=== PATIENT | male | born 1970 | race Caucasian/White ===

== ENCOUNTER → 2018-09-17 | Outpatient (REF) | payer OTHER ==
[2018-09-17 12:20] LABS: ALBUMIN 3.9 GM/DL (3.2-5.2); ALBUMIN/GLOBULIN RATIO 1.34 (1.00-1.93); ALKALINE PHOSPHATASE 48 U/L (45-117); ALT/SGPT 26 U/L (12-78); ANION GAP 5 MEQ/L (8-16); AST/SGOT 13 U/L (7-37); BILIRUBIN,TOTAL 0.6 MG/DL (0.2-1.0); BLOOD UREA NITROGEN 16 MG/DL (7-18); CALCIUM LEVEL 8.7 MG/DL (8.5-10.1); CARBON DIOXIDE LEVEL 29 MEQ/L (21-32); CHLORIDE LEVEL 106 MEQ/L (98-107); CHOLESTEROL LEVEL 198 MG/DL (<200); CHOLESTEROL RISK RATIO 2.955 (<5); CREATININE FOR GFR 0.86 MG/DL (0.70-1.30); GLOMERULAR FILTRATION RATE > 60.0 (>60); GLUCOSE, FASTING 84 MG/DL (70-100); HDL CHOLESTEROL 67 MG/DL (>40); LDL CHOLESTEROL 116 MG/DL (<100); NON-HDL-C 131 MG/DL; POTASSIUM SERUM 4.4 MEQ/L (3.5-5.1); SODIUM LEVEL 140 MEQ/L (136-145); TOTAL PROTEIN 6.8 GM/DL (6.4-8.2); TRIGLYCERIDES LEVEL 74 MG/DL (<150)
== END ==
LOC: M SFHCCLAY 07:21
DX: Z13.220 Encounter for screening for lipoid disorders (principal)

== ENCOUNTER → 2019-01-27 | Outpatient (REF) | payer OTHER | LOC: M LAB REF 16:39 | PROVIDERS: ATTEND Ophthalmology | DX: L72.9 Follicular cyst of the skin and subcutaneous tissue, unspecified (principal) ==

== ENCOUNTER → 2021-08-07 | Outpatient (CLI) | payer OTHER | LOC: M LABSMTC 10:20 | PROVIDERS: ATTEND Anesthesiology | DX: Z01.812 Encounter for preprocedural laboratory examination (principal); Z20.822 Contact with and (suspected) exposure to COVID-19 ==

== ENCOUNTER 2021-08-10 09:03 | Day surgery (SDC) | payer OTHER ==
[~2021-08-10] VITALS: Ht 188 cm; Wt 85.5 kg
[~2021-08-10 09:03] MED LIST: NS 1,000 ML IV ONE
--- OUTSIDE RECORDS SUMMARY | 2021-08-10 09:09 | CCD ---
Author Author [facility] Organization [facility] Address Unknown Phone Unavailable Care Team Providers Care Model And Mold Maker Name Role Phone BERNARDO, A KENNA DO Unavailable Unavailable BERNARDO, A KENNA DO Unavailable Unavailable BERNARDO, A KENNA DO Unavailable Unavailable BERNARDO, A KENNA DO Unavailable Unavailable BERNARDO, A KENNA DO Unavailable Unavailable BERNARDO, A KENNA DO Unavailable Unavailable BERNARDO, A KENNA DO Unavailable Unavailable BERNARDO, A KENNA DO Unavailable Unavailable BERNARDO, A KENNA DO Unavailable Unavailable BERNARDO, A KENNA DO Unavailable Unavailable BERNARDO, A KENNA DO Unavailable Unavailable BERNARDO, A KENNA DO Unavailable Unavailable BERNARDO, A KENNA DO Unavailable Unavailable BERNARDO, A KENNA DO Unavailable Unavailable BERNARDO, A KENNA DO Unavailable Unavailable BERNARDO, A KENNA DO Unavailable Unavailable BERNARDO, A KENNA DO Unavailable Unavailable BERNARDO, A KENNA DO Unavailable Unavailable BERNARDO, A KENNA DO Unavailable Unavailable BERNARDO, A KENNA DO Unavailable Unavailable BERNARDO, A KENNA DO Unavailable Unavailable BERNARDO, A KENNA DO Unavailable Unavailable Re-disclosure Warning The records that you are about to access may contain information from federally-assisted alcohol or drug abuse programs. If such information is present, then the following federally mandated warning applies: This information has been disclosed to you from records protected by federal confidentiality rules (42 CFR part 2). The federal rules prohibit you from making any further disclosure of this information unless further disclosure is expressly permitted by the written consent of the person to whom it pertains or as otherwise permitted by 42 CFR part 2. A general authorization for the release of medical or other information is NOT sufficient for this purpose. The Federal rules restrict any use of the information to criminally investigate or prosecute any alcohol or drug abuse patient.The records that you are about to access may contain highly sensitive health information, the redisclosure of which is protected by Article 27-F of the [facility] Public Health law. If you continue you may have access to information: Regarding HIV / AIDS; Provided by facilities licensed or operated by the [facility] Office of Mental Health; or Provided by the [facility] Office for People With Developmental Disabilities. If such information is present, then the following [facility] mandated warning applies: This information has been disclosed to you from confidential records which are protected by state law. State law prohibits you from making any further disclosure of this information without the specific written consent of the person to whom it pertains, or as otherwise permitted by law. Any unauthorized further disclosure in violation of state law may result in a fine or intermediate sentence or both. A general authorization for the release of medical or other information is NOT sufficient authorization for further disc losure. Encounters Encounter Providers Location Date Indications Data Source(s ) <td ID="encounterTypeDescriptionID1">OCT DISC</td><td></td><td>Trevon Todd MD [facility]</td><td>05/25/2021</td><td>7:26AM</td><td>7:55AM</td><td></td>Outpatient Trevon Todd MD [facility] 05/25/2021 07:2 6:00 AM EDT - 05/25/2021 07:55:00 AM [place] (Trevon Bobo MD [facility]) <td ID="encounterTypeDescriptionID0">KATRINA TING - VISUAL FIELD & OCT</td><td>Kenna Dejesus DO</td><td>Trevon Todd MD [facility]</td><td>05/25/2021</td><td>7:26AM</td><td>8:32AM</td><td><content ID="encounterDiagnosisID0-0">Borderline Glaucoma Open Angle with Borderline Findings Both Eyes</content></td>Outpatient Attender: KENNA Garcia MD [facility] 05/25/2021 07:26:00 AM EDT - 05/25/2021 08:32:00 AM ED T Borderline Glaucoma Open Angle with Borderline Findings Both Eyes VIKY (Trevon Bobo MD [facility]) Borderline Glaucoma Open Angle with Bord barb Findings Both Eyes <td ID="encounterTypeDescriptionID2">2 Y ear Follow-Up</td><td>Kenna Dejesus DO</td><td>Trevon Todd MD [facility]</td><td>05/11/2021</td><td>1:26PM</td><td>2:02PM</td><td><content ID="encounterDiagnosisID2-0">Borderline Glaucoma Open Angle with Borderline Findings Both Eyes</content>, <content ID="encounterDiagnosisID2-1">Dry Eye Syndrome Both Eyes</content>, <content ID="encounterDiagnosisID2-2">Vitreous Disorders Degeneration</content></td>Outpatient Attender: KENNA Garcia MD [facility] 05/11/2021 01:26:00 PM EDT - 05/11/2021 02:02:00 PM EDT Vitreous Disorders DegenerationDry Eye S yndrome Both EyesBorderline Glaucoma Open Angle with Borderline Findings Both EyesVitreous Disorders DegenerationDry Eye Syndrome Both EyesBorderline Glaucoma Open Angle with Borderline Findings Both Eyes VIKY (Trevon Bobo MD [facility]) Vitreous Disorders Degeneration Dry Eye Syndrome Both Eyes Borderline Glaucoma Open Angle with Bord barb Findings Both Eyes Vitreous Disorders Degeneration Dry Eye Syndrome Both Eyes Borderline Glaucoma Open Angle with Bord barb Findings Both Eyes Outpatient [address] [facility] [address] 04/25/2021 12:00:00 AM EDT eCW1 ([facility]) Unknown [address] [facility] [address] 04/10/2021 12:00:00 AM EDT eCW1 ([facility]) Unknown [address] [facility] [address] 08/08/2020 12:00:00 AM EDT eCW1 ([facility]) Immunizations Vaccine Date Status Description Data Source(s) COVID-19 VACCINE Moderna 02/02/2021 12:00:00 AM EDT completed NYSIIS Vaccine Series Complete: YESThis Data wa s Submitted to [facility] Via [employer]. COVID-19 VACCINE Moderna 01/05/2021 12:00:00 AM EDT completed NYSIIS Vaccine Series Complete: NOThis Data was Submitted to [facility] Via [employer]. Medications Medication Brand Name Start Date Product Form Dose Route Admi nistrative Instructions Pharmacy Instructions Status Indications Reaction Description Data Source(s) SUPREP BOWEL PREP KIT 17.5-3.13-1.6 gram SODIUM, POTASSIUM,M AG SULFATES 08/02/2021 12:00:00 AM EDT recon soln 354 TAKE PER DOCTOR'S BOWEL PREP INSTRUCTIONS TAKE PER DOCTOR'S BOWEL PREP INSTRUCTIONS SOLD: 08/08/2021 [facility] 0.01 % 05/12/2021 12:00:00 AM EDT drops 2 INSTILL 1 DROP IN EACH EYE AT NIGHT TIME INSTILL 1 DROP IN EACH EYE AT NIGHT TIME SOLD: 05/20/2021 [facility] bimatoprost 0.1 MG/ML Ophthalmic Solutio n [Lumigan] Lumigan 0.01% Ophthalmic Solution Lumigan 0.01% Ophthalmic Solution 05/11/2021 12:00:00 AM EDT 1 active bimatoprost 0.1 MG/ML Ophthalmic Solution [Lumigan] VIKY (Trevon Bobo MD [facility]) 0.3 % 08/08/2020 12:00:00 AM EDT drops 5 INSTILL 1 DROP IN THE RIGHT EYE FOUR TIMES A DAY DIRECTED INSTILL 1 DROP IN THE RIGHT EYE FOUR JAVAN ES A DAY DIRECTED SOLD: 08/08/2020 [facility] bimatoprost 0.1 MG/ML Ophthalmic Solutio n [Lumigan] Lumigan 0.01% Ophthalmic Solution Lumigan 0.01% Ophthalmic Solution 05/08/2019 12:00:00 AM EDT 1 aborted bimatoprost 0.1 MG/ML Ophthalmic Solution [Lumigan] VIKY (Trevon Bobo MD [facility]) Erythromycin 0.005 MG/MG Ophthalmic Oint ment Erythromycin 5MG/GM Ophthalmic Ointment Erythromycin 5MG/GM Ophthalmic Ointment 10/29/2018 12:00:00 AM EST aborted erythromycin 0.005 M G/MG Ophthalmic Ointment VIYK (Trevon Bobo MD [facility]) Insurance Providers Payer name Policy type / Coverage type Policy ID Covered constitution party ID Covered constitution party's relationship to mcmahon Policy Mcmahon Plan Information [facility] [id number] SP [id number] ANSI-Not a Secondary Insurance [id number] [facility] [employer] [place] [id number] S [id number] [facility]AL SERVICES [facility] [id number] S [id number] Problems, Conditions, and Diagnoses No Information Surgeries/Procedures Procedure Description Date Indications Data Source(s) No surgical / procedural history No surgical / procedural hi story 05/11/2021 12:00:00 AM EDT VIKY (Trevon Bobo MD [facility]) Results No Information Social History Code Duration Value Status Description Data Source(s ) Smoking 05/11/2021 02:06:18 PM EDT Never smoked tobacco (findi ng) completed Never smoked tobacco (finding) VIKY (Trevon Bobo MD [facility]) Smoking 04/25/2021 12:00:00 AM EDT Current Smoker completed Curre nt Smoker eCW1 ([facility]) Vital Signs ID Date Data Source UNK Name Value Range Interpretation Code Description Data Source(s) [place] body weight 190 [lb_av] 190 [lb_av] MEDEN T ([facility], ) Body weight 87.998 kg 87.998 kg MEDENT ([facility], ) Body surface area Derived from formula 2.15 m2 2.15 m2 [facility] ([facility], ) Systolic blood pressure 110 mm[Hg] 110 mm[Hg] M EDENT ([facility]) Diastolic blood pressure 68 mm[Hg] 68 mm[Hg] MEDENT ([facility]) Heart rate 62 /min 62 /min MEDENT ([facility]) Body temperature 97.8 [degF] 97.8 [degF] MEDENT ([facility]) Body height 74 [in_i] 74 [in_i] MEDENT ([facility]) 6'2" Body weight 194.00 [lb_av] 194.00 [lb_av] MEDEN T ([facility]) Body mass index (BMI) [Ratio] 24.9 kg/m2 24.9 k g/m2 MEDENT ([facility]) Body weight 191 [lb_av] 191 [lb_av] eCW1 ([facility]) Body height [in_i] eCW1 ([facility]) Body mass index (BMI) [Ratio] 24.86 kg/m2 24.86 kg/m2 eCW1 ([facility]) Heart rate 75 /min 75 /min eCW1 ([facility]) Respiratory rate 18 /min 18 /min eCW1 ([facility]) Body temperature 98.2 [degF] 98.2 [degF] eCW1 ( [facility]) Systolic blood pressure 107 mm[Hg] 107 mm[Hg] e CW1 ([facility]) Diastolic blood pressure 69 mm[Hg] 69 mm[Hg] eCW1 ([facility]) Patient Treatment Plan of Care Planned Activity Planned Date Details Description Data Source (s) bimatoprost 0.1 MG/ML Ophthalmic Solution [Lumigan] 05/11/20 21 12:00:00 AM EDT VIKY (Trevon Bobo MD [facility]) bimatoprost 0.1 MG/ML Ophthalmic Solution [Lumigan] 05/08/20 19 12:00:00 AM EDT VIKY (Trevon Bobo MD [facility]) Erythromycin 0.005 MG/MG Ophthalmic Ointment 10/29/2018 12:00:00 AM EST VIKY (Trevon Bobo MD [facility])
--- OUTSIDE RECORDS SUMMARY | 2021-08-10 09:09 | CCD ---
Author Author Trevon Todd MD [facility] Organization Trevon Todd MD [facility] Address [address] [address] Phone Care Team Providers Care Kitchen Helper Name Role Phone Perez SCHULTZ, Trevon DOUGLAS Unavailable [phone] Reason for Referral No Reason for Referral Recorded Problems Includes: Active, inactive, and resolved Problems All Visits Onset Date - Time Resolved Date - Time Provider Co ndition Status Borderline Glaucoma Open Angle with Borderline Finding s Both Eyes 10/29/2018 - 12:00AM Trevon Todd MD, FACS Active Epidermal Inclusion Cyst 10/29/2018 - 12:00AM Trevon Todd MD, FACS Active Blepharitis Squamous 10/29/2018 - 12:00AM Trevon Sultana MD, FACS Active Note: , right lower eyelid, left upper eyelid, left lower eyelid Squamous blepharitis right lower eyelid 10/29/2018 - 12:00AM Trevon Bobo MD, FACS Active Squamous blepharitis left upper eyelid 10/29/2018 - 12:00AM Trevon Bobo MD, MISAEL Active Squamous blepharitis left lower eyelid 10/29/2018 - 12:00AM Trevon Bobo MD, FACS Active Dry Eye Syndrome Both Eyes 10/29/2018 - 12:00AM Trevon Todd MD, FACS Active Vitreous Disorders Degeneration 10/29/2018 - 12:00AM Trevon Todd MD, FACS Active Plan of Treatment Future Appointments Date Time Location Provider 10 Month Follow-Up 01/09/2022 7:40AM Trevon Todd MD [facility] Roberto Dejesus DO Assessments Includes: Assessments for all patient encounters Findings Encounter Date 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 TESTING - VISUAL FIELD & OCT with Roberto Dejesus DO 05/25/2021 Dry eye syndrome of both eyes 2 Year Follow-Up with Roberto Dejesus DO 05/11/2021 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 2 Year Fol low-Up with Roberto Dejesus DO 05/11/2021 Vitreous degeneration 2 Year Follow-Up with Roberto pearson DO 05/11/2021 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 IOP CHECK with Trevon Todd MD, FACS 05/08/2019 Other follicular cysts of the skin and subcutaneous ti ssue - left lower eyelid EXCISION OF CYST IN OFFICE with Trevon Todd MD, FACS 01/27/2019 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 IOP CHECK with Trevon Todd MD, FACS 12/05/2018 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 VISUAL FIE LD 24-2 with Trevon Todd MD, FACS 11/13/2018 Dry eye syndrome of both eyes NEW PATIENT WITH REFERRA L with Trevon Todd MD, FACS 10/29/2018 Epidermal inclusion cyst NEW PATIENT WITH REFERRAL [facility] Trevon Todd MD, FACS 10/29/2018 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 NEW PATIEN T WITH REFERRAL with Trevon Todd MD, FACS 10/29/2018 Squamous blepharitis right upper eyelid , right lower eyelid, left upper eyelid, left lower eyelid NEW PATIENT WITH REFERRAL with Trevon Todd MD, FACS 10/29/2018 Vitreous degeneration NEW PATIENT WITH REFERRAL [facility] Trevon Todd MD, FACS 10/29/2018 Instructions Instructions not supported for this document typeNo Instructions Recorded Medical Equipment - Implanted Devices Includes: Current and historical DevicesNo Medical Equipment Recorded Medications Includes: Current and historical Medications Current Medications (continue as prescribed) Lumigan 0.01% Ophthalmic Solution 05/11/2021 Provid er: Roberto Dejesus DO Diagnosis: Open angle with bord barb findings, low risk, bilateral One drop in each eye at night time. Past Medications on file Lumigan 0.01% Ophthalmic Solution 05/08/2019 - 05/11/2021 Pr ovider: Trevon Todd MD FACS Diagnosis: Open angle with bord barb findings, low risk, bilateral One drop in each eye at night time. Erythromycin 5MG/GM Ophthalmic Ointment 10/29/2018 - 021 Provider: Johnny. Portillo-Bobo MD, FACS Diagnosis: Epidermal cyst apply to left lower eyelid at bedtime Lumigan 0.01% Ophthalmic Solution 10/29/2018 - 05/08/2019 Pr ovider: Trevon Todd MD, [facility] Diagnosis: Open angle with bord barb findings, low risk, bilateral One drop in each eye at night time. Medications Administered Includes: Administered Medications in patient's chartNo Administered Medications Recorded Vital Signs Includes: Vital Signs from 06/02/2020 through 06/02/2021No Vital Signs Recorded For Specified Dates Results Includes: Results from 06/02/2020 through 06/02/2021No Results Recorded For Specified Dates History of Present Illness History of Present Illness not supported for this document typeNo History of Present Illness Recorded Social History Description Last Updated Smoking status : Never smoker 05/11/2021 Alcohol use 05/11/2021 Tobacco non-user 05/11/2021 Alcohol 05/11/2021 No tobacco use 05/11/2021 Not a current smoker 05/11/2021 Not using drugs 05/11/2021 Procedures and Surgical History Surgical History Last Updated No surgical / procedural history 05/11/2021 Medical History Includes: Medical History in patient's chart Description Last Updated Currently wearing eyeglasses readers 05/11/2021 No recent change in medical history 05/11/2021 No reported medical history 05/11/2021 Family History Includes: Family History in patient's chart Description Last Updated Maternal history of glaucoma 05/11/2021 Paternal history of family history of cancer Paternal history of glaucoma 05/11/2021 Review of Systems Review of Systems not supported for this document typeNo Review of Systems Recorded Mental Status Mental Status not supported for this document typeNo Mental Status Recorded Functional Status Functional Status not supported for this document typeNo Functional Status Recorded Physical Exam Physical Exam not supported for this document typeNo Physical Exam Recorded Immunizations Includes: Immunizations in patient's chartNo Immunizations Recorded Allergies Includes: Active, inactive, and resolved Allergies Substance Type Reaction Onset Date - Time Resolved Date - Ti me Status Morphine Sulfate Allergy 10/29/2018 - 12:00AM Active Encounters Includes: Encounters from 06/02/2020 through 06/02/2021 Encounter Provider Location Date Check-In Time Check-Out Time D iagnosis TESTING - VISUAL FIELD & OCT Roberto Carter MD [facility] 05/25/2021 7:26AM 8:32AM Borderline Glaucoma Open Angle with Borderline Findings Both Eyes OCT DISC Trevon Todd MD [facility] 05/25/2021 7:26AM 7:55 AM 2 Year Follow-Up Roberto Garcia MD [facility] 04/21 1:26PM 2:02PM Borderline Glaucoma Open Ang le with Borderline Findings Both Eyes, Dry Eye Syndrome Both Eyes, Vitreous Disorders Degeneration Insurance Includes: Active Insurance Policies Plan Name Member ID Group # Subscriber Relationship Effective Da marino 1 - PRIME RETIRED [id number] Yordan Baptiste Self Advance Directives Includes: Current Advance DirectivesNo Advance Directives Recorded Health Concerns Includes: Active Health ConcernsNo Active Health Concerns Recorded Goals Includes: Active GoalsNo Active Goals Recorded Interventions Includes: Interventions for active GoalsNo Interventions Recorded Evaluations & Outcomes Includes: Evaluations & Outcomes for active GoalsNo Outcomes Recorded
--- OUTSIDE RECORDS SUMMARY | 2021-08-10 09:09 | CCD | Continuity of Care Document ---
Author Author Yordan CALLE MD Organization Unknown Address [address] [address] Phone [phone] Care Team Providers Care Prepared Foods Supervisor Name Role Phone Camryn Pool D.O. AUTM [phone] Problems Description No Information Available Social History Type Date Description Comments Sex Unknown ETOH Use 2-3 A Week Tobacco Use Start: Unknown Patient is a current smoker, smo kes every day 1 ppd for 20 years Recreational Drug Use Denies Drug Use Allergies, Adverse Reactions, Alerts Active Allergies Criticality Reaction | Severity Comments Date Morphine Unable to assess criticality Difficulty breathing 06/07/2021 Medications Active Medications SIG Qnty Indications Ordering Provide r Date Lumigan 0.01% Solution Instill 1 Drop In Each Eye AT Night Time Unknown 0 Immunizations Description No Information Available Vital Signs Date Vital Result Comment 06/07/2021 8:31am BP Systolic 110 mmHg BP Diastolic 68 mmHg Heart Rate 62 /min Body Temperature 97.8 F Height 74 inches 6'2" Weight 194.00 lb BMI (Body Mass Index) 24.9 kg/m2 [place] Body Weight 190 lb Weight 87.998 kg BSA (Body Surface Area) 2.15 m2 Results Description No Information Available Procedures Description No Information Available Medical Devices Description No Information Available Encounters Description No Information Available Assessments Date Code Description Provider 06/07/2021 Z12.11 Encounter for screening for ervin gnant neoplasm of colon Nathanael Calle JR, MD Plan of Treatment Future Appointment(s):* 08/24/2021 1:15 pm - MISAEL Davis at [facility] * 08/10/2021 11:30 am - Nathanael Calle JR, MD at [facility] 06/07/2021 - Nathanael Calle JR, MD* Z12.11 Encounter for screening for malignant neoplasm of colon* Comments:* The patient is here for recommendations concerning screening colonoscopy and fits the criteria for screening colonoscopy. And at this point the recommendation is to proceed with a repeat colonoscopy risks as well as benefits have been discussed with him at length those including but not limited to bleeding infection damage to bowel including perforation and possibly anesthetic complications. Patient understands as well that small lesions/polyps can be missed with increased fr equency and is much dependent on colonic prep. The patient agrees to proceed with colonoscopy as recommended. Functional Status Description No Information Available Mental Status Description No Information Available Referrals Refer to Reason for Referral Status Appt Date Alvin Wilkins D.O. SCHEDULE COLONOSCOPY Scheduled [address] [place] [address] [phone]
--- OUTSIDE RECORDS SUMMARY | 2021-08-10 09:09 | CCD | Continuity of Care Document ---
Author Author Yordan ROACH MD Organization Unknown Address [address] [address] Phone [phone] Care Team Providers Care Application Technician Name Role Phone Camryn Pool D.O. AUTM [phone] Problems Description No Information Available Social History Type Date Description Comments Sex Unknown ETOH Use 2-3 A Week Tobacco Use Start: Unknown Patient is a current smoker, smo kes every day 1 ppd for 20 years Recreational Drug Use Denies Drug Use Allergies, Adverse Reactions, Alerts Active Allergies Reaction Severity Comments Date Morphine Difficulty breathing 021 Medications Active Medications SIG Qnty Indications Ordering Provide r Date Lumigan 0.01% Solution Instill 1 Drop In Each Eye AT Night Time Unknown 0000 0 Immunizations Description No Information Available Vital Signs Date Vital Result Comment 06/07/2021 8:31am BP Systolic 110 mmHg BP Diastolic 68 mmHg Heart Rate 62 /min Body Temperature 97.8 F Height 74 inches 6'2" Weight 194.00 lb BMI (Body Mass Index) 24.9 kg/m2 [place] Body Weight 190 lb Weight 87.998 kg BSA (Body Surface Area) 2.15 m2 Results Description No Information Available Procedures Description No Information Available Medical Devices Description No Information Available Encounters Description No Information Available Assessments Description No Information Available Plan of Treatment No Information Available Functional Status Description No Information Available Mental Status Description No Information Available Referrals Refer to Reason for Referral Status Appt Date Alvin Wilkins D.O. SCHEDULE COLONOSCOPY Scheduled [address] [address] [phone]
[2021-08-10] MEDS ORDERED: LIDOCAINE 2% 100MG/5ML SDV (FOR ANES.) As Ordered ONE (09:15)
[2021-08-10] MEDS ORDERED: propofoL 200 MG/20 ML VIAL As Ordered ONE (09:15)
--- NOTE | 2021-08-10 09:56 | ROOR ---
Patient Name: Yordan Baptiste Procedure Date: 08/10/2021 9:36 AM Date of : 1970 Age: 50 Room: [facility] Gender: Male Note Status: Finalized Procedure: Colonoscopy Indications: Screening for colorectal malignant neoplasm Providers: Nathanael Calle Jr, MD Referring MD: Doron Ocampo MD Requesting Provider: Medicines: Propofol per Anesthesia Complications: No immediate complications. Procedure: Pre-Anesthesia Assessment: - Prior to the procedure, a History and Physical was performed, and patient medications and allergies were reviewed. The patient is competent. The risks and benefits of the procedure and the sedation options and risks were discussed with the patient. All questions were answered and informed consent was obtained. Patient identification and proposed procedure were verified by the physician and the nurse in the pre-procedure area and in the procedure room. Mental Status Examination: alert and oriented. Airway Examination: normal oropharyngeal airway and neck mobility. Respiratory Examination: clear to auscultation. CV Examination: normal. ASA Grade Assessment: II - A patient with mild systemic disease. After reviewing the risks and benefits, the patient was deemed in satisfactory condition to undergo the procedure. The anesthesia plan was to use moderate sedation / analgesia (conscious sedation). Immediately prior to administration of medications, the patient was re-assessed for adequacy to receive sedatives. The heart rate, respiratory rate, oxygen saturations, blood pressure, adequacy of pulmonary ventilation, and response to care were monitored throughout the procedure. The physical status of the patient was re-assessed after the procedure. The Colonoscope was introduced through the anus and advanced to the cecum, identified by appendiceal orifice and ileocecal valve. The colonoscopy was performed without difficulty. The patient tolerated the procedure well. The quality of the bowel preparation was adequate. Findings: The rectum, recto-sigmoid colon, sigmoid colon, descending colon, transverse colon, cecum, appendiceal orifice and ileocecal valve appeared normal. A small polyp was found in the ascending colon. The polyp was removed with a cold snare. Resection and retrieval were complete. Impression: - The rectum, recto-sigmoid colon, sigmoid colon, descending colon, transverse colon, cecum, appendiceal orifice and ileocecal valve are normal. - One small polyp in the ascending colon, removed with a cold snare. Resected and retrieved. Recommendation: - Discharge patient to home (ambulatory). - Repeat colonoscopy in 5-10 years for surveillance based on pathology results. Procedure Code(s): --- Professional --- 29683, Colonoscopy, flexible; with removal of tumor(s), polyp(s), or other lesion(s) by snare technique Diagnosis Code(s): --- Professional --- Z12.11, Encounter for screening for malignant neoplasm of colon K63.5, Polyp of colon CPT copyright 2019 [employer]. All rights reserved. The codes documented in this report are preliminary and upon car salesperson review may be revised to meet current compliance requirements. Nathanael Calle MD Nathanael Calle Jr, MD 08/10/2021 9:56:01 AM Electronically signed by Nathanael Calle Jr, MD Number of Addenda: 0 Note Initiated On: 08/10/2021 9:36 AM Estimated Blood Loss: Estimated blood loss: none.
[2021-08-10 10:15] VITALS: BP 131/75
[2021-08-10] MEDS ORDERED: PHENYLephrine 500MCG 5ML (100MCG/ML) SYRINGE As Ordered ONE (10:27)
== END 2021-08-10 10:21 | disposition home or self-care (01) ==
LOC: M OPP 09:03
PROVIDERS: ATTEND Surgery
DX: Z12.11 Encounter for screening for malignant neoplasm of colon (principal); D12.6 Benign neoplasm of colon, unspecified; H40.9 Unspecified glaucoma; F17.200 Nicotine dependence, unspecified, uncomplicated; Z88.5 Allergy status to narcotic agent

== ENCOUNTER → 2024-02-19 | Outpatient (REF) | payer OTHER ==
[2024-02-19 17:20] LABS: ALBUMIN 4.1 G/DL (3.2-5.2); ALKALINE PHOSPHATASE 50 U/L (46-116); ALT/SGPT 15 U/L (7.0-40); AST/SGOT 10 U/L (<34); BILIRUBIN,TOTAL 0.4 MG/DL (0.3-1.2); BLOOD UREA NITROGEN 16 MG/DL (9-23); CALCIUM LEVEL 9.2 MG/DL (8.5-10.1); CARBON DIOXIDE LEVEL 30 MMOL/L (20-31); CHLORIDE LEVEL 105 MMOL/L (98-107); CHOLESTEROL LEVEL 186 MG/DL (<200); CHOLESTEROL RISK RATIO 3.15 (<5); CREATININE FOR GFR 1.03 MG/DL (0.70-1.30); GLOMERULAR FILTRATION RATE > 60.0 (>56); GLUCOSE, FASTING 98 MG/DL (60-100); POTASSIUM SERUM 4.5 MMOL/L (3.5-5.1); PSA SCREENING 1.21 NG/ML (< 4.00); SODIUM LEVEL 141 MMOL/L (136-145); TOTAL PROTEIN 6.5 G/DL (5.7-8.2); TRIGLYCERIDES LEVEL 130 MG/DL (<150)
== END ==
LOC: M SFHCCLAY 14:00
PROVIDERS: ATTEND Nurse Practitioner Family
DX: Z12.5 Encounter for screening for malignant neoplasm of prostate (principal); F17.211 Nicotine dependence, cigarettes, in remission; M54.50 Low back pain, unspecified; R55 Syncope and collapse
CPT/HCPCS: 72110; 80053; 80061; G0103

== ENCOUNTER → 2024-06-25 | Outpatient (CLI) | payer OTHER | LOC: M PLARAD 13:59 | PROVIDERS: ATTEND Nurse Practitioner Family | DX: E27.8 Other specified disorders of adrenal gland (principal) ==

== ENCOUNTER → 2024-08-27 | Outpatient (REF) | payer OTHER ==
[2024-08-27 12:05] LABS: BLOOD UREA NITROGEN 14 MG/DL (9-23); CALCIUM LEVEL 9.6 MG/DL (8.5-10.1); CARBON DIOXIDE LEVEL 29 MMOL/L (20-31); CHLORIDE LEVEL 108 MMOL/L (98-107); CREATININE FOR GFR 0.86 MG/DL (0.70-1.30); GLOMERULAR FILTRATION RATE > 60.0 (>56); GLUCOSE, FASTING 100 MG/DL (60-100); POTASSIUM SERUM 4.3 MMOL/L (3.5-5.1); SODIUM LEVEL 142 MMOL/L (136-145)
== END ==
LOC: M SFHCCLAY 07:13
PROVIDERS: ATTEND Nurse Practitioner Family
DX: E27.8 Other specified disorders of adrenal gland (principal)

== ENCOUNTER → 2024-12-28 | Outpatient (CLI) | payer OTHER ==
[~2024-12-28] MED LIST changes: -NS 1,000 ML IV ONE; +PROHANCE 279.3MG/ML 15ML VIAL As Ordered ONE; +PROHANCE 279.3MG/ML 5ML VIAL As Ordered ONE
== END ==
LOC: M RAD 06:44
PROVIDERS: ATTEND Nurse Practitioner Family
DX: D35.00 Benign neoplasm of unspecified adrenal gland (principal)

== ENCOUNTER → 2025-02-19 | Outpatient (REF) | payer OTHER ==
[2025-02-19 18:18] LABS: ALBUMIN 3.7 G/DL (3.2-5.2); ALKALINE PHOSPHATASE 48 U/L (40-129); ALT/SGPT 22 U/L (7.0-40); AST/SGOT 14 U/L (<34); BILIRUBIN,TOTAL 0.5 MG/DL (0.3-1.2); BLOOD UREA NITROGEN 21 MG/DL (9-23); CALCIUM LEVEL 8.5 MG/DL (8.5-10.1); CARBON DIOXIDE LEVEL 27 MMOL/L (20-31); CHLORIDE LEVEL 107 MMOL/L (98-107); CHOLESTEROL LEVEL 165 MG/DL (<200); CHOLESTEROL RISK RATIO 2.89 (<5); CREATININE FOR GFR 0.87 MG/DL (0.70-1.30); GLOMERULAR FILTRATION RATE > 90.0 (>56); GLUCOSE, FASTING 155 MG/DL (60-100); HDL CHOLESTEROL 56.9 MG/DL (>40); LDL CHOLESTEROL 90.9 MG/DL (<100); NON-HDL-C 108.1 MG/DL; POTASSIUM SERUM 3.9 MMOL/L (3.5-5.1); PSA SCREENING 0.98 NG/ML (< 4.00); SODIUM LEVEL 142 MMOL/L (136-145); TOTAL PROTEIN 6.1 G/DL (5.7-8.2); TRIGLYCERIDES LEVEL 86 MG/DL (<150)
== END ==
LOC: M SFHCCLAY 13:35
PROVIDERS: ATTEND Nurse Practitioner Family
DX: M54.50 Low back pain, unspecified (principal); F17.211 Nicotine dependence, cigarettes, in remission; Z12.5 Encounter for screening for malignant neoplasm of prostate
CPT/HCPCS: 80053; 80061; G0103